=== PATIENT | male | born 1980 | race Caucasian/White ===

== ENCOUNTER 2022-01-10 10:37 | Emergency (ER) | payer OTHER ==
[~2022-01-10] VITALS: Ht 180.3 cm; Wt 121.1 kg
[2022-01-10 11:25] VITALS: BP_SYST 145
--- NOTE | 2022-01-10 11:25 | NUR ---
Patient to ER bed H1 to gown for evaluation. Side rails up. Report given to JADEN SCHWARTZ.
[2022-01-10] MEDS ORDERED: LIDOCAINE 1% 10 MG/ML, 20 ML MDV INJ ONE (11:30)
[2022-01-10] MEDS ORDERED: BACEYEO OP (11:54)
[2022-01-10] MEDS ORDERED: IBUP-1969 PO (11:54)
[2022-01-10] MEDS ORDERED: BACITRACIN 1 GM OINT TP ONE (12:43)
--- NOTE | 2022-01-10 12:45 | NUR ---
PT BIB Spouse to ED from home. CC laceration. Right hand 12 oclock on palm distal to pointer finger. pain 7/10. Controlled bleeding NAD,VSS. 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 pt states Tdap is current within 5 years.
--- NOTE | 2022-01-10 13:00 | NUR ---
ER at bedside examining patient.
--- NOTE | 2022-01-10 13:07 | NUR ---
Patient given written and verbal discharge instructions and verbalizes understanding. ER MD discussed with patient the results and treatment provided. Patient in stable condition. ID arm band removed. Patient educated on pain management and to follow up with PMD. Opportunity for questions provided and answered. Medication side effect fact sheet provided.
[2022-01-10 13:18] VITALS: BP_SYST 145
== END 2022-01-10 13:18 | disposition home or self-care (01) ==
LOC: SED 10:37
DX: S61.411A Laceration without foreign body of right hand, initial encounter (principal); Z79.899 Other long term (current) drug therapy; W22.8XXA Striking against or struck by other objects, initial encounter; Y93.89 Activity, other specified; Y92.89 Other specified places as the place of occurrence of the external cause; Y99.8 Other external cause status
CPT/HCPCS: 99283; 12002; J2001

== ENCOUNTER 2022-01-17 13:20 | Emergency (ER) | payer OTHER ==
[~2022-01-17] VITALS: Ht 180.3 cm; Wt 117.9 kg
[2022-01-17 13:20] VITALS: BP_SYST 135
[~2022-01-17 13:20] MED LIST: BACEYEO OP; IBUP-1969 PO
--- NOTE | 2022-01-17 15:02 | NUR ---
Patient to ER bed 05 to gown for evaluation. Side rails up.
--- NOTE | 2022-01-17 15:03 | NUR ---
ER at bedside examining patient.
[2022-01-17] MEDS ORDERED: CEPH-548 PO (15:24)
[2022-01-17] MEDS ORDERED: BACITRACIN 1 GM OINT TP ONE (15:30)
--- NOTE | 2022-01-17 15:35 | NUR ---
Patient given written and verbal discharge instructions and verbalizes understanding. ER MD discussed with patient the results and treatment provided. Patient in stable condition. ID arm band removed. IV catheter removed intact and dressing applied, no active bleeding. Rx of given. Patient educated on pain management and to follow up with PMD. Pain Scale . Opportunity for questions provided and answered. Medication side effect fact sheet provided.
== END 2022-01-17 15:35 | disposition home or self-care (01) ==
LOC: SED 13:20
DX: Z48.00 Encounter for change or removal of nonsurgical wound dressing (principal); Z79.899 Other long term (current) drug therapy
CPT/HCPCS: 99283